=== PATIENT | female | born 1995 | race Caucasian/White ===

== ENCOUNTER 2019-10-26 10:00 | Inpatient (IN) | payer BC, SELFPAY ==
[2019-10-26] VITALS (30 sets, daily range): BP systolic 93–115; BP diastolic 57–79; PULSE 66–94; RESP 16; TEMP 36.6–37.3; O2SAT 98–100; BMI 29.0
[2019-10-26 09:58] LABS: ROM Internal Control Test YES-OK TO RESULT pt. (Internal QC); ROM Patient Test POSITIVE (Negative)
[2019-10-26] MEDS: Lactated Ringers 500 ML 999 ML IV (10:35)
[2019-10-26] MEDS: Lactated Ringers 1,000 ML 200 ML IV ×2 (11:10→16:03)
[2019-10-26 11:20] LABS: Absolute Lymphocyte Count 1.82 X10^3/uL (0.83-4.51); Basophil# 0.04 X10^3/uL; Basophil% 0.3 % (0-1); Eosinophils% 1.6 % (0-5); Hematocrit 33.7 % (37-47); Hemoglobin 11.2 g/dL (12.0-15.0); Lymphocyte # 1.82 X10^3/ul (4.0); Mean Corp Hgb Conc 33.2 g/dL (32-36); Mean Corpuscular Hgb 31.6 pg (27.0-32.0); Mean Corpuscular Volume 95.2 fL (81-99); Mean Platelet Vol. 9.3 fl (6.2-12.0); Monocyte# 1.06 X10^3/uL; Monocyte% 8.7 % (0-10); NRBC Flagged by Analyzer 0 % (0-5); Neutrophil # 8.98 X10^3/uL (2.7-7.7); Neutrophil % 73.8 % (47-70); Platelet Count 291 K/mm3 (150-450); RBC Distribution Width CV 12.2 % (11.6-14.6); RBC Distribution Width SD 42.2 fl (35.1-43.9); Red Blood Count 3.54 M/mm3 (4.2-5.4); White Blood Count 12.2 K/mm3 (4.4-11.0)
--- NOTE | 2019-10-26 11:39 | PCM.HP.OB ---
- Problem List (1) Spontaneous rupture of amniotic membranes Status: Acute (2) 38 weeks gestation of Status: Acute History Date of Admission: 10/26/19 Final RAJEEV: 11/06/19 Gestational age: 38 Weeks and 3 Days History of this : This is a 23 year-old, G [1], P [0], at 38.3 weeks gestational age that presents with contractions and loss of fluid this morning. Denies any vaginal bleeding and has positive movement. Allergies Penicillins [PCN] Allergy (Verified 10/26/19 09:32) Hives Home Medications: Home Medications Vits [Prenatabs FA] 1 tab PO DAILY 10/26/19 Smoking Status: Never smoker Number of Fetus(es): 1 NST - FHR Rate Baby A Baseline: 130 Variability:: Moderate Accelerations:: 15 x 15 Decelerations:: None FHR Category:: Category I Uterine Activity:: Every 2-4 minutes. Palpate moderate and relaxed in between History Past Pregnancies: Past Pregnancies Delivery Date Name GA/ Weeks Outcome Route Wt Sex Labor Length Anesthesia Delivery Location Provider FOB Labs: O- negative Rubella- IMMUNE HB- neg HC- neg RPR- NR HIV- NR GC/CH- neg GBS- negative COVID- 19 - not completed Expected Delivery Method: Spontaneous Vaginal Review of Systems Constitutional: Denies: Anorexia, Chills HEENT: Denies: Head Aches Cardiovascular: Denies: Chest Pain Respiratory: Denies: Cough, Shortness of Breath Genitourinary: Denies: Dysuria Neurological: Denies: Blurred vision, Headaches Physical Exam Vitals: Vital Signs Temp Pulse BP Pulse Ox 98.5 F 73 102/64 98 10/26/19 11:28 10/26/19 11:28 10/26/19 11:28 10/26/19 11:28 General: Alert, Oriented x3, Cooperative Cardiovascular: Regular rate Lungs: Normal air movement Abdomen: Soft, Non Tender, Gravid Neurological: Cranial nerves II-XII grossly intact Assessment/Plan All Active Problems Spontaneous rupture of amniotic membranes (Acute) 38 weeks gestation of (Acute) This is a 23 year-old, G [1], P [0], at 38.3 weeks gestational age with Spontaneous Rupture of Membranes. Admit to labor and delivery IV fluids per protocol Pain medication/ epidural when indicated GBS negative Anticipate DR. King notified of admission and is collaborating physician
[2019-10-26] MEDS: fentaNYL-bupivacaine (epidural) 100 ML BAG EPIDURAL ×2 (12:05→16:11)
[2019-10-26] MEDS: Oxytocin 30 units/NS 500 ml 30 UNITS/500 ML IV.SOLN IV (13:48)
--- NOTE | 2019-10-26 13:58 | PCM.PN.OB ---
Patient Problems: Active and Suspected Problems Spontaneous rupture of amniotic membranes (Acute) 38 weeks gestation of (Acute) Subjective: Patient seen at bedside. Comfortable after epidural placement. Denies feeling any pain or contractions. Objective: CE- / with bulging membranes (forebag) - Physical Exam Vitals/I&O's: Vital Signs Temp Pulse BP Pulse Ox 98.4 F 69 105/62 100 10/26/19 13:19 10/26/19 13:18 10/26/19 13:18 10/26/19 12:25 Weight: 174 lb 6.4 oz Body Mass Index (BMI) 29.0 Intake and Output for Last 24 Hours 10/24/19 10/25/19 10/26/19 23:59 23:59 23:59 Intake Total 750 / 750 Output Total 600 / 600 Balance 150 / 150 General: Alert, Oriented x3 Lungs: Normal air movement Cardiovascular: Regular rate Abdomen: Soft, Non Tender, Non-Distended, Gravid Musculoskeletal: No Tenderness to Palpation of Joints or Extremities Neurological: Cranial nerves II-XII grossly intact Psych/Mental Status: Normal Affect Laboratory Results 10/26/19 09:25: Vag Amniotic Fld Detect POSITIVE H 10/26/19 11:05: WBC 12.2 H, RBC 3.54 L, Hgb 11.2 L, Hct 33.7 L, MCV 95.2, MCH 31.6, MCHC 33.2, RDW Std Deviation 42.2, RDW Coeff of Susy 12.2, Plt Count 291, MPV 9.3, Immature Gran % (Auto) 0.600, Neut % (Auto) 73.8 H, Lymph % (Auto) 15.0 L, Nicholas % (Auto) 8.7, Eos % (Auto) 1.6, Baso % (Auto) 0.3, Absolute Neuts (auto) 9.0 H, Absolute Lymphs (auto) 1.82, Nucleated RBC % 0 10/26/19 11:05: Blood Type O NEGATIVE, Antibody Screen NEGATIVE Current Medications Acetaminophen (Tylenol) 325 - 650 mg PO Q4H PRN PRN PRN Reason: Pain Score 1-3/10 Al Hydroxide/Mg Hydroxide (Mylanta Ii) 15 - 30 ml PO Q4H PRN PRN PRN Reason: INDIGESTION Citric Acid/Sodium Citrate (Bicitra) 30 ml PO X1 PRN PRN Reason: Section Ephedrine Sulfate () 10 mg IV Q10M PRN PRN Reason: hypotension Ephedrine Sulfate () 10 mg IM Q30M PRN PRN Reason: hypotension Fentanyl Citrate (Sublimaze (100mcg Ampule)) 25 - 50 mcg IV Q2H PRN PRN PRN Reason: Pain Score 4-10/10 Fentanyl/Bupivacaine/Sodium Chlor () 0 ml EPIDURAL UD [facility]; Protocol Last Admin: 10/26/19 12:05 Dose: 100 ml Documented by: Lactated Ringer's () 500 mls @ 999 mls/hr IV .Q31M PRN PRN Reason: Epidural Last Infusion: 10/26/19 11:10 Dose: Infused Documented by: Lactated Ringer's () 500 mls @ 999 mls/hr IV .Q31M PRN PRN Reason: Corrective Measures Lactated Ringer's () 1,000 mls @ 50 mls/hr IV .Q20H [facility] Last Admin: 10/26/19 11:10 Dose: 200 mls/hr Documented by: Naloxone HCl 4 mg/ Dextrose 504 mls @ 0 mls/hr IV .Q0M PRN; Protocol PRN Reason: To maintain Resp. rate >10 Oxytocin/Sodium Chloride () 30 units in 500 mls @ 2 mls/hr IV .Q250H [facility] Last Admin: 10/26/19 13:48 Dose: 2 mls/hr Documented by: Nalbuphine HCl (Nubain) 5 mg IV Q3H PRN PRN PRN Reason: ITCHING Naloxone HCl (Narcan) 0.02 mg IV Q1M PRN PRN Reason: RR< 10 AND PT UNRESPONSIVE Ondansetron HCl (Zofran) 4 mg IV Q4H PRN PRN PRN Reason: NAUSEA Prochlorperazine Edisylate (Compazine Iv) 10 mg IV Q6H PRN PRN PRN Reason: NAUSEA Sodium Chloride () 10 - 40 ml IV X1 PRN PRN Reason: SALINE FLUSH Medical Necessity - Tobacco Use Smoking Status: Never smoker Assessment/Plan All Active Problems Spontaneous rupture of amniotic membranes (Acute) 38 weeks gestation of (Acute) A/P at 38.3 weeks gestation S.R.O.M at home for clear fluid. Category 1 tracing GBS negative A.R.O.M (forebag) for clear fluid Pitocin IV started at 2 mu/min IUPC placed to assist with titration of Pitocin Dr. King aware of plan of care and is collaborating physician
[2019-10-26] MEDS: Oxytocin 30 units/NS 500 ml 30 UNITS/500 ML IV.SOLN 334 UNITS IV (18:15)
--- NOTE | 2019-10-26 18:33 | OP.PCM_ITS ---
Problem List (1) Spontaneous rupture of amniotic membranes Status: Acute (2) 38 weeks gestation of Status: Acute Report of Operation Date of Procedure: 10/26/19 Pre-Operative Diagnosis: Term gestation, S.R.O.M Post-Operative Diagnosis: Same, live male Type of Anesthesia:: Epidural - Admit VTE Documentation VTE Present on Admission: No Vaginal Delivery Maternal Presentation: Spontaneous Rupture of Membranes Amniotic Membrane Rupture Type: Spontaneous at home Rupture of Membrane time: 0600 Amniotic Fluid Description: Clear Gestational age: 38.3 Date of Procedure: 10/26/19 Pre-Operative Diagnosis: Term, S.R.O.M Post-Operative Diagnosis: same, live male Surgery/ Procedure Performed: Spontaneous Vaginal Delivery Type of Anesthesia: Epidural Description of Procedure: Patient progressed to complete dilation and started pushing. Epidural needed decreased due to patient not feeling correct area to push. Bedside support given while patient pushing. Delivery of head without difficulty and body quickly after. Infant placed on maternal abdomen to allow for delay cord clamping. vigorous and crying. Cord clamped and cut by FOB after 2 minutes. Pitocin started for active management of third stage. Placenta del ivered spontaneously and intact. Cord blood collected. After inspection, it was noted bilateral labial lacerations. Lacerations repaired with 3-0 Vicryl. Perineum intact. Vaginal sweep completed. Fundus firm 1 below U and hemostasis achieved. Infant and mother bonding well at this time. Presentation: Vertex Placental Delivery Description: Spontaneous Placenta Disposition: [facility] Cord Vessel Description: 3 Vessels Cord Entanglement: None Estimated Blood Loss: 200 Infant A gender: Male (1 minute): 8 (5 minute): 9 Episiotomy Description: None Laceration: Vaginal Extension/lac, 1st degree - Bilateral labial lacerations Medications given after delivery: IV Pitocin Complications: None
[2019-10-26] MEDS: 0.9% Saline Lock 10 ML Syringe IV (20:45)
[2019-10-27] MEDS: Ibuprofen 600 MG Tablet PO ×3 (01:33→16:49)
[2019-10-27] MEDS: Acetaminophen 500 MG Tablet 1000 MG PO ×2 (04:21→13:31)
[2019-10-27 04:25] VITALS: BP 103/66; PULSE 66; RESP 14; TEMP 36.6
[2019-10-27 08:23] VITALS: BP 94/53; PULSE 65; RESP 16; TEMP 36.7
[2019-10-27 13:20] VITALS: BP 103/55; PULSE 76; RESP 16; TEMP 37
--- NOTE | 2019-10-27 16:45 | PCM.PN.OB ---
Patient Problems: Active and Suspected Problems Spontaneous rupture of amniotic membranes (Acute) 38 weeks gestation of (Acute) Subjective: She reports some abdominal pain but overall is feeling well - Physical Exam Vitals/I&O's: Vital Signs Temp Pulse Resp BP Pulse Ox 98.6 F 76 16 103/55 L 98 10/27/19 13:20 10/27/19 13:20 10/27/19 13:20 10/27/19 13:20 10/26/19 20:28 Oxygen Delivery Method Room Air Weight: 174 lb 6.4 oz Body Mass Index (BMI) 29.0 Intake and Output for Last 24 Hours 10/25/19 10/26/19 10/27/19 23:59 23:59 23:59 Intake Total 3157.90 / 3157.90 Output Total 925 / 925 575 / 575 Balance 2232.90 / 2232.90 -575 / -575 General: Alert, Oriented x3 Abdomen: Soft, Non Tender, Non-Distended - ff mid & below umb Extremities: Capillary Refill Less than 3 Seconds Neurological: Cranial nerves II-XII grossly intact Laboratory Results 10/26/19 21:19: Screen NEGATIVE, Baby's Blood Type A POSITIVE, Baby's SUJATA NEGATIVE Current Medications Acetaminophen (Tylenol) 1,000 mg PO Q8H PRN PRN PRN Reason: Pain Score 1-3/10 Last Admin: 10/27/19 13:31 Dose: 1,000 mg Documented by: Bisacodyl (Dulcolax) 10 mg RECTAL UD PRN PRN Reason: If no BM Dibucaine (Dibucaine) 1 applic TOPICAL TID PRN PRN; Protocol PRN Reason: Discomfort Hydrocortisone (Hytone) 1 applic TOPICAL TID PRN PRN; Protocol PRN Reason: Discomfort Ibuprofen (Motrin) 600 mg PO Q6H PRN PRN PRN Reason: Pain Score 1-3/10 Last Admin: 10/27/19 08:35 Dose: 600 mg Documented by: Methylergonovine Maleate (Methergine) 0.2 mg IM X1 PRN PRN Reason: Excess bleeding/uterine atony Ondansetron HCl (Zofran) 4 mg IV Q4H PRN PRN PRN Reason: Nausea Senna/Docusate Sodium (Senokot-S, Marzena-Colace) 1 - 2 tablet PO DAILY PRN PRN PRN Reason: Constipation Simethicone (Mylicon) 80 mg PO PCHS PRN PRN Reason: Indigestion/Stomach pain Sodium Chloride () 5 - 15 ml IV UD PRN PRN Reason: SALINE FLUSH Last Admin: 10/26/19 20:45 Dose: 10 ml Documented by: Medical Necessity - Tobacco Use Smoking Status: Never smoker Assessment/Plan All Active Problems Spontaneous rupture of amniotic membranes (Acute) 38 weeks gestation of (Acute) PPD#1 D/c home later tonight per patient request
--- NOTE | 2019-10-27 16:56 | DCINST_ITS ---
Discharge Diet: No Restrictions Discharge Activity: May Drive, May Shower May resume sexual activity in: 6 weeks Weight Bearing Status: Weight bearing as tolerated Additional Instructions: If you experience any of the following, contact your healthcare provider. * Bleeding that soaks a pad every hour for 2 hours * Fever 100.4 or higher * Unrelieved incision or abdominal pain * Swelling, redness, discharge or bleeding from your incision or episiotomy site * Your incision begins to separate * Problems urinating (including inability to urinate or burning while urinating). * Visual changes * Severe headache * Flu-like symptoms * Pain or redness in one of both of your breasts * Pain, warmth, tenderness or swelling in your legs, especially the calf area * Frequent nausea and vomiting * Symptoms of depression or anxiety If you experience any of the following, call 911 or go to the nearest Emergency Room. * Chest pain * Problems breathing * Seizure activity * Partial or complete paralysis of a body part, slurred speech, weakness or drooping of the face, or a sudden inability to walk or hold your balance Allergies/Adverse Reactions: Allergies Penicillins [PCN] Allergy (Verified 10/26/19 09:32) Hives Medications to take at Discharge Vits [Prenatabs FA ] 1 tab PO DAILY 10/26/19 Acetaminophen [Tylenol] 1,000 mg PO Q8H PRN PRN tablet 10/27/19 Ibuprofen [Motrin] 600 mg PO Q6H PRN PRN tablet 10/27/19 Test Results: Test results from this visit will be discussed in further detail at your follow- up appointment, if applicable.
--- NOTE | 2019-10-27 16:56 | PCM.DCVAG ---
Discharge Diet: No Restrictions Discharge Activity: May Drive, May Shower May resume sexual activity in: 6 weeks Weight Bearing Status: Weight bearing as tolerated Additional Instructions: If you experience any of the following, contact your healthcare provider. Bleeding that soaks a pad every hour for 2 hours Fever 100.4 or higher Unrelieved incision or abdominal pain Swelling, redness, discharge or bleeding from your incision or episiotomy site Your incision begins to separate Problems urinating (including inability to urinate or burning while urinating). Visual changes Severe headache Flu-like symptoms Pain or redness in one of both of your breasts Pain, warmth, tenderness or swelling in your legs, especially the calf area Frequent nausea and vomiting Symptoms of depression or anxiety If you experience any of the following, call 911 or go to the nearest Emergency Room. Chest pain Problems breathing Seizure activity Partial or complete paralysis of a body part, slurred speech, weakness or drooping of the face, or a sudden inability to walk or hold your balance Allergies/Adverse Reactions: Allergies Penicillins [PCN] Allergy (Verified 10/26/19 09:32) Hives Medications to take at Discharge Vits [Prenatabs FA ] 1 tab PO DAILY 10/26/19 Acetaminophen [Tylenol] 1,000 mg PO Q8H PRN PRN tablet 10/27/19 Ibuprofen [Motrin] 600 mg PO Q6H PRN PRN tablet 10/27/19 Test Results: Test results from this visit will be discussed in further detail at your follow-up appointment, if applicable.
[2019-10-27 17:56] VITALS: BP 98/52; PULSE 72; RESP 16; TEMP 36.7
[2019-10-27 20:57] VITALS: BP 125/70; PULSE 72; RESP 14; TEMP 36.9
[2019-10-28 01:49] VITALS: BP 89/46; PULSE 78; RESP 16; TEMP 36.7
[2019-10-28] MEDS: Ibuprofen 600 MG Tablet PO (06:04)
--- NOTE | 2019-10-28 08:16 | PCM.PN.OB ---
Patient Problems: Active and Suspected Problems Spontaneous rupture of amniotic membranes (Acute) 38 weeks gestation of (Acute) Subjective: Pain well controlled. Average lochia. No new complaints. - Physical Exam Vitals/I&O's: Vital Signs Temp Pulse Resp BP Pulse Ox 98.0 F 78 16 89/46 L 98 10/28/19 01:49 10/28/19 01:49 10/28/19 01:49 10/28/19 01:49 10/26/19 20:28 Oxygen Delivery Method Room Air Weight: 79.107 kg Body Mass Index (BMI) 29.0 Intake and Output for Last 24 Hours 10/26/19 10/27/19 10/28/19 23:59 23:59 23:59 Intake Total 3157.90 / 3157.90 Output Total 925 / 925 575 / 575 Balance 2232.90 / 2232.90 -575 / -575 General: Alert, Cooperative, No apparent distress Current Medications Acetaminophen (Tylenol) 1,000 mg PO Q8H PRN PRN PRN Reason: Pain Score 1-3/10 Last Admin: 10/27/19 13:31 Dose: 1,000 mg Documented by: Bisacodyl (Dulcolax) 10 mg RECTAL UD PRN PRN Reason: If no BM Dibucaine (Dibucaine) 1 applic TOPICAL TID PRN PRN; Protocol PRN Reason: Discomfort Hydrocortisone (Hytone) 1 applic TOPICAL TID PRN PRN; Protocol PRN Reason: Discomfort Ibuprofen (Motrin) 600 mg PO Q6H PRN PRN PRN Reason: Pain Score 1-3/10 Last Admin: 10/28/19 06:04 Dose: 600 mg Documented by: Methylergonovine Maleate (Methergine) 0.2 mg IM X1 PRN PRN Reason: Excess bleeding/uterine atony Ondansetron HCl (Zofran) 4 mg IV Q4H PRN PRN PRN Reason: Nausea Senna/Docusate Sodium (Senokot-S, Marzena-Colace) 1 - 2 tablet PO DAILY PRN PRN PRN Reason: Constipation Simethicone (Mylicon) 80 mg PO PCHS PRN PRN Reason: Indigestion/Stomach pain Sodium Chloride () 5 - 15 ml IV UD PRN PRN Reason: SALINE FLUSH Last Admin: 10/26/19 20:45 Dose: 10 ml Documented by: Medical Necessity - Tobacco Use Smoking Status: Never smoker Assessment/Plan All Active Problems Spontaneous rupture of amniotic membranes (Acute) 38 weeks gestation of (Acute) day #2 status post vaginal delivery. Patient is doing well. is bottlefeeding and doing well. Charge home with routine instructions.
[2019-10-28 08:49] VITALS: BP 116/64; PULSE 84; RESP 16; TEMP 36.9
== END 2019-10-28 10:00 | disposition home or self-care (01) | DRG 807 ==
LOC: WPOUT 10:11 → WP 10:11
PROVIDERS: Admitting Provider Advanced Practice Midwife; Referring Provider Advanced Practice Midwife; Visit Provider Advanced Practice Midwife
DX: O70.0 First degree perineal laceration during delivery (principal); Z3A.38 38 weeks gestation of pregnancy; Z37.0 Single live birth
CPT/HCPCS: 36415; 59025; 59050; 84112; 85025; 85461; 86850; 86900; 86901; 90384; 99218; J7120; A4216; G0378; J2790